=== PATIENT | female | born 1955 ===

== ENCOUNTER 2018-12-02 16:26 | Emergency (ER) | payer BC ==
[2018-12-02 17:13] VITALS: BP 135/76
--- NOTE | 2018-12-02 17:27 | UC ---
General HPI - HPI Summary HPI Summary: per triage, FOR ONE WEEK FEVERS, MAINLY IN THE EVENING. 100-101. "SLIGHT" COUGH. NO SORE THROAT. BODY ACHES, CHILLS.WEAKNESS. NO NAUSEA OR VOMITING. NO PAIN OR BURNING WITH URINATION. no cp, sob or hx asthma/copd. no hx travel outside the [place]. - History of Current Complaint Chief Complaint: UCGeneralIllness Stated Complaint: FEVER,BODY ACHES, COUGH Time Seen by Provider: 12/02/18 17:15 Hx Obtained From: Patient Pain Intensity: 0 Associated Signs & Symptoms: Positive: Cough, Fever. Negative: Chest Pain, Diarrhea, Dysuria, SOB, Vomiting - Allergy/Home Medications Allergies/Adverse Reactions: Allergies Allergy/AdvReac Type Severity Reaction Status Date / Time No Known Allergies Allergy Verified 12/02/18 17:02 Home Medications: Home Medications Acetaminophen TAB* [Tylenol TAB*] 650 mg PO Q4H PRN 12/02/18 [History Confirmed 12/02/18] Atorvastatin* [Lipitor*] 10 mg PO 2100 12/02/18 [History Confirmed 12/02/18] Calcium Carbonate [Calcium] 500 mg PO DAILY 12/02/18 [History Confirmed 12/02/18 ] Cholecalciferol TAB* [Vitamin D TAB*] 1,000 unit PO DAILY 12/02/18 [History Confirmed 12/02/18] Glucosamine Sulfate Dipot Chlr [Gnp Glucosamine Maximum S] 1,000 mg PO DAILY 10/21 [History Confirmed 12/02/18] Multivitamin [Multivitamins] 1 cap PO DAILY 12/02/18 [History Confirmed 12/02/18 ] Calvin-3 Fatty Acids/Fish Oil [Fish Oil 1,000 mg Softgel] 1 each PO DAILY [History Confirmed 12/02/18] PMH/Surg Hx/FS Hx/Imm Hx Endocrine History: Dyslipidemia - Surgical History Surgical History: Yes Surgery Procedure, Year, and Place: 2 C-SECTIONS - Family History Known Family History: Positive: Non-Contributory - Social History Alcohol Use: Rare Substance Use Type: None Smoking Status (MU): Never Smoked Tobacco Review of Systems All Other Systems Reviewed And Are Negative: Yes Constitutional: Positive: Fever, Chills, Fatigue Respiratory: Positive: Cough. Negative: Shortness Of Breath Cardiovascular: Negative: Chest Pain Genitourinary: Negative: Dysuria Musculoskeletal: Negative: Arthralgia Is Patient Immunocompromised?: No Physical Exam Triage Information Reviewed: Yes Appearance: Well-Appearing Vital Signs: Initial Vital Signs Temp 99.1 F 12/02/18 17:06 Pulse 86 12/02/18 17:06 Resp 24 12/02/18 17:06 BP 135/76 12/02/18 17:06 Pulse Ox 98 12/02/18 17:06 Vital Signs Reviewed: Yes Eyes: Positive: Conjunctiva Clear ENT: Positive: Pharynx normal, TMs normal. Negative: Nasal congestion, Nasal drainage Neck: Positive: Supple, Nontender, No Lymphadenopathy Respiratory: Positive: Lungs clear, No respiratory distress, Decreased breath sounds - slight Cardiovascular: Positive: RRR, No Murmur Abdomen Description: Positive: Nontender Bowel Sounds: Positive: Present Musculoskeletal: Positive: ROM Intact, No Edema Neurological: Positive: Alert Psychological: Positive: Age Appropriate Behavior Skin Exam: Normal Diagnostics - Radiology No standard instances Radiology Interpretation Completed By: Radiologist - IMPRESSION: 1. NO EVIDENCE FOR ACUTE FINDING. 2. SMALL IRREGULAR DENSITY WHICH PROJECTS OVER THE LEFT MIDLUNG. RECOMMEND AN OUTPATIENT CT OF THE CHEST WITHOUT CONTRAST FOR FURTHER EVALUATION TO EXCLUDE A PULMONARY NODULE. Course/Dx - Course Course Of Treatment: DIAGNOSTICS: RAPID FLU=NEGATIVE RESULTS OF WORKUP HERE WERE D/W PT. I OFFERED TO DO OUT PT CBC AND CMP; HOEVER, PT DECLINED CITING SHE WILL F/U WITH HER PCP AND THEY CAN DO THE WORKUP IF NEEDED. PT ADVISED OF NEED FOR F/U CT TO R/ NODULE WELL AND A COPY OF THE REPORT WAS GIVEN TO PT. - Differential Dx - Multi-Symptom Differential Diagnoses: Other - RAPID FLU IS NEGATIVE. U/A=1+ LEUKOCYTES WITH CULTURE PENDING. CXR=SMALL DENSITY L LUNG. WILL NEED TO EXCLUDE NODULE. PT IS NON TOXIC. NO INDICATION FOR ER TRANSFER BUT PT DOES AGREE TO GO THERE FOR ANT CHANGES/WORSENING. - Diagnoses Provider Diagnosis: Lung density on x-ray, Fever and chills Discharge - Sign-Out/Discharge Documenting (check all that apply): Patient Departure All imaging exams completed and their final reports reviewed: Yes - Discharge Plan Condition: Stable Disposition: HOME Patient Education Materials: Fever in Adults (ED), Pulmonary Nodules (ED) Referrals: Violet Blankenship MD [Primary Care Provider] - As Soon As Possible - Billing Disposition and Condition Condition: STABLE Disposition: Home
[2018-12-02 17:38] LABS: Influenza A Molecular NEGATIVE (Negative); Influenza B Molecular NEGATIVE (Negative)
== END 2018-12-02 18:41 | disposition home or self-care (01) ==
LOC: UCCORT 16:26
DX: R91.8 Other nonspecific abnormal finding of lung field (principal); R50.9 Fever, unspecified
CPT/HCPCS: 71046; 81003; 87086; 99201; G0463